=== PATIENT | female | born 1985 | race Caucasian/White ===

== ENCOUNTER 2016-11-27 02:09 | Inpatient (IN) | payer OTHER ==
[2016-11-27] MEDS ORDERED: Ondansetron 4 MG/2 ML SDV IVPUSH PRN ×2 (02:48→07:18)
[2016-11-27] MEDS ORDERED: Lidocaine 1% 50 ML MDV INJECT ONE (02:48)
[2016-11-27] MEDS ORDERED: Nalbuphine 20 MG/1 ML Amp IVPUSH PRN (02:48)
[2016-11-27] MEDS: Lactated Ringers 1,000 ML IV SCH ×3 (03:00→06:05)
[2016-11-27] MEDS ORDERED: Lactated Ringers 1,000 ML IV SCH (05:30)
[2016-11-27] MEDS ORDERED: Gentamicin 400 MG in Sodium Chloride 0.9% 100 ML IV ONE (05:35)
[2016-11-27] MEDS ORDERED: Clindamycin Phosphate 900 MG in Sodium Chloride 0.9% 100 ML IV ONE (05:35)
[2016-11-27] MEDS ORDERED: Gentamicin 40 MG/ML 2 ML Vial ONE (05:48)
[2016-11-27] MEDS ORDERED: Clindamycin Phosphate 900 MG/6 ML AdvVial ONE (05:48)
[2016-11-27] MEDS ORDERED: Sodium Chloride 0.9% 100 ML ONE ×2 (05:50)
[2016-11-27] MEDS ORDERED: Bupivacaine 0.5% 30 ML SDV ONE (05:53)
[2016-11-27] MEDS ORDERED: Citric Acid/Sodium Citrate Solution 30 ML Cup PO ONE (06:00)
[2016-11-27] MEDS ORDERED: Sodium Chloride 0.9% 10 ML Syringe FLUSH PRN (06:00)
[2016-11-27] MEDS ORDERED: Metoclopramide 10 MG/2 ML SDV IVPUSH ONE (06:00)
--- NOTE | 2016-11-27 07:17 | PCM.POSTAN ---
POST ANESTHESIA ASSESSMENT - MENTAL STATUS Mental Status: alert, oriented - VITAL SIGNS Pulse Rate: 94 SaO2: 99 Resp Rate: 16 Blood Pressure: 88/67 Temperature: 36.4 C - RESPIRATORY Respiratory Status: respiratory rate WNL, airway patent, O2 saturation stable - CARDIOVASCULAR CV Status: pulse rate WNL, blood pressure stable - GASTROINTESTINAL GI Status: no symptoms - PAIN Pain Score: 0 - POST OP HYDRATION Hydration Status: adequate & stable
[2016-11-27] MEDS ORDERED: fentaNYL 100 MCG/2 ML SDV IVPUSH PRN (07:18)
[2016-11-27] MEDS ORDERED: Metoclopramide 10 MG/2 ML SDV IVPUSH PRN (07:18)
--- NOTE | 2016-11-27 07:23 | PCM.OPNOTE ---
- General Post-Op/Procedure Note Date of Surgery/Procedure: 11/27/16 Operative Procedure(s): repeat section Findings: viable female, OP, 8/9 APGARS, 7#[id number] at 0642 Pre Op Diagnosis: SROM, prior Post-Op Diagnosis: Same Anesthesia Technique: Spinal Primary Surgeon: Joselyn Kevin Anesthesia Provider: Sharath Dougherty Watermaster: Kaya Shannon Fluid Replacement, Intraop: 2,000 Output, Urine Amount: 175 EBL in mLs: 500 Complications: None Condition: Good Free Text/Narrative:: Intake & Output 11/26/16 11/27/16 11/27/16 22:59 06:59 14:59 Intake Total 3200 Balance 3200 The patient was taken to the operating room where epidural anesthesia was dosed to surgical levels without difficulty. The patient was prepped and draped in the usual sterile fashion in the dorsal supine position with a leftward tilt. A Pfannenstiel skin incision was made with the scalpel and carried through to the underlying layer of fascia. The fascia was incised in the midline and extended laterally using Felix scissors. Karen clamps were used to elevate the superior aspect of the fascial incision, which was elevated, and the underlying rectus muscles were dissected off bluntly and using Felix scissors. Attention was then turned to the inferior aspect of the fascial incision, which in similar fashion was grasped with Karen clamps, elevated, and the underlying rectus muscles were dissected off bluntly and using the felix. The rectus muscles were dissected in the midline. The peritoneum was identified and entered using Metzenbaum scissors; this incision was extended superiorly and inferiorly with good visualization of the bladder. The bladder blade was inserted. The vesicouterine peritoneum was identified and entered sharply using Metzenbaum scissors. This incision was extended laterally and the bladder flap was created digitally. The bladder blade was reinserted. The lower uterine segment was incised in a transverse fashion using the scalpel and extended using bandage scissors as well as manual traction. Clear fluid was noted. The infant was subsequently delivered by flexing the head to the incision. Body and shoulders followed without difficulty. The cord was clamped and cut. The was subsequently handed to the awaiting platform worker whose presence had been requested.. The placenta was delivered spontaneously intact with a three-vessel cord noted. The uterus was exteriorized and cleared of all clots and debris. The uterine incision was repaired in 2 layers using 0 monocryl. Hemostasis was visualized. Hemostasis was visualized bilaterally. The uterus was returned to the abdomen. The uterine incision was reexamined and it was noted to be hemostatic. The pelvis was copiously irrigated. The fascia was closed with 1 PDS suture, and the skin was closed with 3-0 monocryl. Sponge, lap, and instrument counts were correct x2. The patient was stable at the completion of the procedure and was subsequently transferred to the recovery room in stable condition.
[2016-11-27] MEDS ORDERED: Meperidine PF 50 MG/ML Syringe IVPUSH ONE (07:45)
[2016-11-27] MEDS ORDERED: Oxytocin/Lactated Ringers 10 UNIT/1,000 ML BAG IV SCH (08:00)
[2016-11-27] MEDS ORDERED: Ketorolac 30 MG/ML SDV IVPUSH SCH (08:00)
[2016-11-27] MEDS ORDERED: ePHEDrine 50 MG/ML SDV IVPUSH PRN (08:18)
[2016-11-27] MEDS ORDERED: Lanolin 100% Cream 7 GM Tube TOP PRN (08:18)
[2016-11-27] MEDS ORDERED: Dextrose 5%-Lactated Ringers 1,000 ML IV SCH (08:18)
[2016-11-27] MEDS ORDERED: diphenhydrAMINE 50 MG/ML SDV IVPUSH PRN (08:18)
[2016-11-27] MEDS ORDERED: Naloxone 0.4 MG/ML SDV IVPUSH PRN (08:18)
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
[2016-11-27] MEDS: Ketorolac 30 MG/ML SDV IVPUSH SCH ×2 (13:58→18:54)
[2016-11-27] MEDS ORDERED: Dextrose 5%-0.45% NaCl 1,000 ML IV SCH (16:00)
[2016-11-28] MEDS: Ketorolac 30 MG/ML SDV IVPUSH SCH (00:41)
--- NOTE | 2016-11-28 07:06 | PCM.PNPP ---
- General Info Date of Service: 11/28/16 Functional Status: Reports: pain controlled, tolerating diet, ambulating, urinating - Review of Systems General: Reports: no symptoms Pulmonary: Reports: no symptoms Cardiovascular: Reports: no symptoms Gastrointestinal: Reports: No symptoms Genitourinary: Reports: no symptoms - Patient Data Vital Signs - most recent: Last Vital Signs Temp 37.3 C 11/28/16 06:35 Pulse 73 11/28/16 04:19 Resp 18 11/28/16 04:36 BP 107/55 L 11/28/16 04:19 Pulse Ox 97 11/28/16 04:36 Weight - most recent: 79.832 kg I&O - last 24 hours: Intake & Output 11/27/16 11/28/16 11/28/16 22:59 06:59 14:59 Intake Total 180 Output Total 1300 700 Balance -1120 -700 Lab Results - last 24 hrs: Laboratory Results - last 24 hr 11/27/16 Range/Units 09:24 WBC 22.30 H (3.98-10.04) K/mm3 RBC 3.75 L (3.98-5.22) M/mm3 Hgb 11.8 (11.2-15.7) gm/L Hct 34.8 (34.1-44.9) % MCV 92.8 (79.4-94.8) fl MCH 31.5 (25.6-32.2) pg MCHC 33.9 (32.2-35.5) g/dl RDW Std Deviation 48.2 H (36.4-46.3) fL Plt Count 410 H (182-369) K/mm3 MPV 10.6 (9.4-12.3) fl Med Orders - Current: Current Medications Acetaminophen/Hydrocodone Bitart ([place] 325-5 Mg) 2 tab PO Q4H PRN PRN Reason: Pain (moderate 4-6) Diphenhydramine HCl (Benadryl) 25 mg IVPUSH Q6H PRN PRN Reason: Itching or Nausea Docusate Sodium (Colace) 100 mg PO Q12H PRN PRN Reason: Constipation Emollient Ointment (Lansinoh Hpa) 0 gm TOP ASDIRECTED PRN PRN Reason: Sore Nipples Ephedrine Sulfate (Ephedrine Sulfate) 5 mg IVPUSH SEECOMMENT PRN PRN Reason: Other Dextrose/Sodium Chloride (Dextrose 5%-1/2 Ns) 1,000 mls @ 125 mls/hr IV ASDIRECTED [facility] Ibuprofen (Motrin) 600 mg PO Q6H PRN PRN Reason: mild pain or fever Naloxone HCl (Narcan) 0.1 mg IVPUSH SEECOMMENT PRN PRN Reason: Respiratory Depression Discontinued Medications Bupivacaine HCl (Marcaine 0.5%) Confirm Administered Dose 30 ml .ROUTE .STK-MED ONE Stop: 11/27/16 05:54 Last Admin: 11/27/16 06:38 Dose: 20 ml Citric Acid/Sodium Citrate (Bicitra Solution) 30 ml PO ONETIME ONE Stop: 11/27/16 06:01 Last Admin: 11/27/16 06:04 Dose: 30 ml Clindamycin Phosphate (Cleocin) Confirm Administered Dose 900 mg .ROUTE .STK- MED ONE Stop: 11/27/16 05:49 Last Admin: 11/27/16 06:04 Dose: Not Given Fentanyl (Sublimaze) 50 mcg IVPUSH Q5M PRN PRN Reason: pain Stop: 11/27/16 10:00 Gentamicin Sulfate (Gentamicin) Confirm Administered Dose 400 mg .ROUTE .STK- MED ONE Stop: 11/27/16 05:49 Last Admin: 11/27/16 06:04 Dose: Not Given Lactated Ringer's (Ringers, Lactated) 1,000 mls @ 125 mls/hr IV ASDIRECTED [facility] Oxytocin/Lactated Ringer's (Pitocin In Lr 10 Units/1,000 Ml) 10 unit in 1,000 mls @ 100 mls/hr IV ASDIRECTED [facility] PRN Reason: Protocol Lactated Ringer's (Ringers, Lactated) 1,000 mls @ 125 mls/hr IV ASDIRECTED [facility] Last Admin: 11/27/16 06:05 Dose: 125 mls/hr Clindamycin Phosphate 900 mg/ (Sodium Chloride) 106 mls @ 100 mls/hr IV ONETIME ONE Stop: 11/27/16 06:38 Last Admin: 11/27/16 05:50 Dose: 100 mls/hr Gentamicin Sulfate 400 mg/ (Sodium Chloride) 110 mls @ 200 mls/hr IV ONETIME ONE Stop: 11/27/16 06:07 Last Admin: 03/08/17 06:03 Dose: 200 mls/hr Sodium Chloride (Normal Saline) Confirm Administered Dose 100 mls @ as directed .ROUTE .[facility] ONE Stop: 11/27/16 05:51 Last Admin: 11/27/16 06:04 Dose: Not Given Sodium Chloride (Normal Saline) Confirm Administered Dose 100 mls @ as directed .ROUTE .[facility] ONE Stop: 11/27/16 05:51 Last Admin: 11/27/16 06:04 Dose: Not Given Dextrose/Lactated Ringer's (Dextrose 5%-Lactated Ringers) 1,000 mls @ 125 mls/ hr IV ASDIRECTED [facility] Stop: 11/27/16 16:17 Last Admin: 11/27/16 13:58 Dose: 125 mls/hr Ketorolac Tromethamine (Toradol) 30 mg IVPUSH Q6H [facility] Stop: 11/27/16 20:01 Last Admin: 11/27/16 19:30 Dose: Not Given Ketorolac Tromethamine (Toradol) 30 mg IVPUSH Q6H [facility] Stop: 11/28/16 01:01 Last Admin: 11/28/16 00:41 Dose: 30 mg Lidocaine HCl (Xylocaine 1%) 50 ml INJECT ASDIRECTED ONE Stop: 11/27/16 02:49 Last Admin: 11/27/16 06:17 Dose: Not Given Meperidine HCl (Demerol) 12.5 mg IVPUSH ONETIME ONE Stop: 11/27/16 07:46 Last Admin: 11/27/16 07:42 Dose: 12.5 mg Metoclopramide HCl (Reglan) 10 mg IVPUSH ONETIME ONE Stop: 11/27/16 06:01 Last Admin: 11/27/16 06:04 Dose: 10 mg Metoclopramide HCl (Reglan) 10 mg IVPUSH ONETIME PRN PRN Reason: Nausea/Vomiting Stop: 11/27/16 10:00 Nalbuphine HCl (Nubain) 10 mg IVPUSH Q2H PRN PRN Reason: Pain (moderate 4-6) Ondansetron HCl (Zofran) 4 mg IVPUSH Q4H PRN PRN Reason: Nausea/Vomiting Last Admin: 11/27/16 05:18 Dose: 4 mg Ondansetron HCl (Zofran) 4 mg IVPUSH ONETIME PRN PRN Reason: Nausea/Vomiting Stop: 11/27/16 10:00 Sodium Chloride (Saline Flush) 10 ml FLUSH ASDIRECTED PRN PRN Reason: Keep Vein Open - Infant Interaction Disposition, : in Room with Family Infant Interaction: Holding Feeding: Breastfed ; Nursed Well Support Person: - Recovery Exam Fundal Tone: Firm Fundal Level: At Umbilicus Fundal Placement: Midline Lochia Amount: Scant Lochia Color: Rubra/Red Perineum Description: Intact, Minimal Bruising/Swelling Episiotomy/Laceration: Not Approximated Bladder Status: Voiding Urinary Elimination: Indwelling Catheter - Exam General: alert, oriented, cooperative Lungs: Clear to auscultation, Normal respiratory effort Cardiovascular: regular rate, regular rhythm Abdomen: soft, no tenderness Skin: warm, dry, intact Wound/Incisions: dressing dry and intact - Problem List & Annotations (1) S/P repeat low transverse SNOMED Code(s): 394148846, 102679214, 143647979, 599724120 Code(s): Z98.891 - HISTORY OF UTERINE SCAR FROM PREVIOUS SURGERY Status: Acute Current Visit: Yes - Problem List Review Problem List Initiated/Reviewed/Updated: Yes - Assessment Assessment:: POD#1 from RLTCS - Plan Plan:: * Routine cares * Encourage breast feeding * Home in 1-2 days
[2016-11-28] MEDS: Acetaminophen/HYDROcodone 325-5 MG Tab PO PRN ×3 (08:24→18:38)
[2016-11-28] MEDS: Docusate Sodium 100 MG Cap PO PRN (17:11)
[2016-11-28] MEDS: Ibuprofen 600 MG Tab PO PRN (20:49)
[2016-11-29] MEDS: Acetaminophen/HYDROcodone 325-5 MG Tab PO PRN ×2 (04:39→14:06)
--- NOTE | 2016-11-29 06:50 | PCM.PNPP ---
- General Info Date of Service: 11/29/16 Functional Status: Reports: pain controlled, tolerating diet, ambulating, urinating - Review of Systems General: Reports: no symptoms Pulmonary: Reports: no symptoms Cardiovascular: Reports: no symptoms Gastrointestinal: Reports: No symptoms Genitourinary: Reports: no symptoms Musculoskeletal: Reports: no symptoms - Patient Data Vital Signs - most recent: Last Vital Signs Temp 36.7 C 11/29/16 04:34 Pulse 77 11/29/16 04:34 Resp 16 11/29/16 04:34 BP 89/68 L 11/29/16 04:34 Pulse Ox 98 11/29/16 04:34 Weight - most recent: 79.832 kg I&O - last 24 hours: Intake & Output 11/28/16 11/28/16 11/29/16 14:59 22:59 06:59 Intake Total 330 Output Total 700 1000 Balance -370 -1000 Med Orders - Current: Current Medications Acetaminophen/Hydrocodone Bitart ([place] 325-5 Mg) 2 tab PO Q4H PRN PRN Reason: Pain (moderate 4-6) Last Admin: 11/29/16 04:39 Dose: 2 tab Docusate Sodium (Colace) 100 mg PO Q12H PRN PRN Reason: Constipation Last Admin: 11/28/16 17:11 Dose: 100 mg Emollient Ointment (Lansinoh Hpa) 0 gm TOP ASDIRECTED PRN PRN Reason: Sore Nipples Ibuprofen (Motrin) 600 mg PO Q6H PRN PRN Reason: mild pain or fever Last Admin: 11/28/16 20:49 Dose: 600 mg Naloxone HCl (Narcan) 0.1 mg IVPUSH SEECOMMENT PRN PRN Reason: Respiratory Depression Discontinued Medications Bupivacaine HCl (Marcaine 0.5%) Confirm Administered Dose 30 ml .ROUTE .STK-MED ONE Stop: 11/27/16 05:54 Last Admin: 11/27/16 06:38 Dose: 20 ml Citric Acid/Sodium Citrate (Bicitra Solution) 30 ml PO ONETIME ONE Stop: 11/27/16 06:01 Last Admin: 11/27/16 06:04 Dose: 30 ml Clindamycin Phosphate (Cleocin) Confirm Administered Dose 900 mg .ROUTE .STK- MED ONE Stop: 11/27/16 05:49 Last Admin: 11/27/16 06:04 Dose: Not Given Diphenhydramine HCl (Benadryl) 25 mg IVPUSH Q6H PRN PRN Reason: Itching or Nausea Ephedrine Sulfate (Ephedrine Sulfate) 5 mg IVPUSH SEECOMMENT PRN PRN Reason: Other Fentanyl (Sublimaze) 50 mcg IVPUSH Q5M PRN PRN Reason: pain Stop: 11/27/16 10:00 Gentamicin Sulfate (Gentamicin) Confirm Administered Dose 400 mg .ROUTE .STK- MED ONE Stop: 11/27/16 05:49 Last Admin: 11/27/16 06:04 Dose: Not Given Lactated Ringer's (Ringers, Lactated) 1,000 mls @ 125 mls/hr IV ASDIRECTED [facility] Oxytocin/Lactated Ringer's (Pitocin In Lr 10 Units/1,000 Ml) 10 unit in 1,000 mls @ 100 mls/hr IV ASDIRECTED [facility] PRN Reason: Protocol Lactated Ringer's (Ringers, Lactated) 1,000 mls @ 125 mls/hr IV ASDIRECTED [facility] Last Admin: 11/27/16 06:05 Dose: 125 mls/hr Clindamycin Phosphate 900 mg/ (Sodium Chloride) 106 mls @ 100 mls/hr IV ONETIME ONE Stop: 11/27/16 06:38 Last Admin: 11/27/16 05:50 Dose: 100 mls/hr Gentamicin Sulfate 400 mg/ (Sodium Chloride) 110 mls @ 200 mls/hr IV ONETIME ONE Stop: 11/27/16 06:07 Last Admin: 11/27/16 06:03 Dose: 200 mls/hr Sodium Chloride (Normal Saline) Confirm Administered Dose 100 mls @ as directed .ROUTE .STK-MED ONE Stop: 11/27/16 05:51 Last Admin: 11/27/16 06:04 Dose: Not Given Sodium Chloride (Normal Saline) Confirm Administered Dose 100 mls @ as directed .ROUTE .STK-MED ONE Stop: 11/27/16 05:51 Last Admin: 11/27/16 06:04 Dose: Not Given Dextrose/Sodium Chloride (Dextrose 5%-1/2 Ns) 1,000 mls @ 125 mls/hr IV ASDIRECTED [facility] Dextrose/Lactated Ringer's (Dextrose 5%-Lactated Ringers) 1,000 mls @ 125 mls/ hr IV ASDIRECTED [facility] Stop: 11/27/16 16:17 Last Admin: 11/27/16 13:58 Dose: 125 mls/hr Ketorolac Tromethamine (Toradol) 30 mg IVPUSH Q6H [facility] Stop: 11/27/16 20:01 Last Admin: 11/27/16 19:30 Dose: Not Given Ketorolac Tromethamine (Toradol) 30 mg IVPUSH Q6H [facility] Stop: 11/28/16 01:01 Last Admin: 11/28/16 00:41 Dose: 30 mg Lidocaine HCl (Xylocaine 1%) 50 ml INJECT ASDIRECTED ONE Stop: 11/27/16 02:49 Last Admin: 11/27/16 06:17 Dose: Not Given Meperidine HCl (Demerol) 12.5 mg IVPUSH ONETIME ONE Stop: 11/27/16 07:46 Last Admin: 11/27/16 07:42 Dose: 12.5 mg Metoclopramide HCl (Reglan) 10 mg IVPUSH ONETIME ONE Stop: 11/27/16 06:01 Last Admin: 11/27/16 06:04 Dose: 10 mg Metoclopramide HCl (Reglan) 10 mg IVPUSH ONETIME PRN PRN Reason: Nausea/Vomiting Stop: 11/27/16 10:00 Nalbuphine HCl (Nubain) 10 mg IVPUSH Q2H PRN PRN Reason: Pain (moderate 4-6) Ondansetron HCl (Zofran) 4 mg IVPUSH Q4H PRN PRN Reason: Nausea/Vomiting Last Admin: 11/27/16 05:18 Dose: 4 mg Ondansetron HCl (Zofran) 4 mg IVPUSH ONETIME PRN PRN Reason: Nausea/Vomiting Stop: 11/27/16 10:00 Sodium Chloride (Saline Flush) 10 ml FLUSH ASDIRECTED PRN PRN Reason: Keep Vein Open - Interaction Disposition, : [place] in Room with Family Infant Interaction: Holding Feeding: Breastfed Infant; Nursed Well Support Person: - Recovery Exam Fundal Tone: Firm Fundal Level: At Umbilicus Fundal Placement: Midline Lochia Amount: Scant Lochia Color: Rubra/Red Perineum Description: Intact, Minimal Bruising/Swelling Episiotomy/Laceration: None Bladder Status: Voiding Urinary Elimination: Voided - Exam General: alert, oriented, cooperative Lungs: Clear to auscultation, Normal respiratory effort Cardiovascular: regular rhythm, tachycardia Abdomen: soft, no tenderness Extremities: no edema Skin: warm, dry, intact Wound/Incisions: healing well, no drainage - Problem List & Annotations (1) S/P repeat low transverse SNOMED Code(s): 981745492, 118687069, 435774698, 759084395 Code(s): Z98.891 - HISTORY OF UTERINE SCAR FROM PREVIOUS SURGERY Status: Acute Current Visit: Yes - Problem List Review Problem List Initiated/Reviewed/Updated: Yes - My Orders Last 24 Hours: My Active Orders 11/29/16 06:44 CBC W/O DIFF,HEMOGRAM [HEME] Routine - Assessment Assessment:: POD#2 from RLTCS - Plan Plan:: * Routine cares * Encourage breast feeding * Home today
--- NOTE | 2016-11-29 07:29 | PCM.DCSUM1 ---
Discharge Summary - Discharge Data Discharge Date: 11/29/16 Discharge Disposition: Home, Self-Care 01 Condition: Good - Discharge Diagnosis/Problem(s) (1) S/P repeat low transverse SNOMED Code(s): 373149193, [id number], [id number], [id number] ICD Code: Z98.891 - HISTORY OF UTERINE SCAR FROM PREVIOUS SURGERY Status: Acute Current Visit: Yes - Patient Summary/Data Operative Procedure(s) Performed: repeat section Complications: None Consults: None Recommended Follow-up Testing/Procedures: Follow up in 1-2 weeks for incision check Hospital Course: 31 y/o admitted at 40 4/7 wks for SROM. She initially desired a trial of labor, but was closed and after minimal change desired to proceed with RLTCS. See operative note. Procedure was uncomplicated. She did well and was discharged home on POD#2. - Patient Instructions Diet: Regular Diet as Tolerated Activity: No Lifting Over 10 Pounds Activity, Other: Pelvic Rest for 6 weeks Driving: Do Not Drive (While taking narcotics ) Showering/Bathing: May Shower, No Tub Bathing/Swimming Wound/Incision Care: Keep Operative Site/Wound Site Clean and Dry Notify Provider of: Fever, Increased Pain, Swelling and Redness, Drainage, Nausea and/or Vomiting - Discharge Plan Prescriptions/Med Rec: Acetaminophen/HYDROcodone [Erie 325-5 MG] 2 tab PO Q4H PRN #30 tablet PRN Reason: Pain Home Medications: Home Meds [id number]/Ferrous Fumarate/FA [ Tablet] 1 tab PO DAILY 11/27/16 [History] Acetaminophen/HYDROcodone [Erie 325-5 MG] 2 tab PO Q4H PRN #30 tablet 11/29/16 [Rx] Docusate Sodium [Colace] 100 mg PO Q12H PRN #0 cap 11/29/16 [Rx] Ibuprofen [IJD: Ibuprofen] 600 mg PO Q6H PRN #0 tablet 11/29/16 [Rx] Referrals: Joselyn Kevin MD [Primary Care Provider] - (1-2 weeks for post op check ) - Discharge Summary/Plan Comment DC Time >30 min.: No - Patient Data Vitals - Most Recent: Last Vital Signs Temp 36.7 C 11/29/16 04:34 Pulse 77 03/10/17 04:34 Resp 16 11/29/16 04:34 BP 89/68 L 11/29/16 04:34 Pulse Ox 98 11/29/16 04:34 Weight - Most Recent: 79.832 kg I&O - Last 24 hours: Intake & Output 11/28/16 11/29/16 11/29/16 22:59 06:59 14:59 Output Total 1000 Balance -1000 Med Orders - Current: Current Medications Acetaminophen/Hydrocodone Bitart (Erie 325-5 Mg) 2 tab PO Q4H PRN PRN Reason: Pain (moderate 4-6) Last Admin: 11/29/16 04:39 Dose: 2 tab Docusate Sodium (Colace) 100 mg PO Q12H PRN PRN Reason: Constipation Last Admin: 11/28/16 17:11 Dose: 100 mg Emollient Ointment (Lansinoh Hpa) 0 gm TOP ASDIRECTED PRN PRN Reason: Sore Nipples Ibuprofen (Motrin) 600 mg PO Q6H PRN PRN Reason: mild pain or fever Last Admin: 11/28/16 20:49 Dose: 600 mg Naloxone HCl (Narcan) 0.1 mg IVPUSH SEECOMMENT PRN PRN Reason: Respiratory Depression Discontinued Medications Bupivacaine HCl (Marcaine 0.5%) Confirm Administered Dose 30 ml .ROUTE .STK-MED ONE Stop: 11/27/16 05:54 Last Admin: 11/27/16 06:38 Dose: 20 ml Citric Acid/Sodium Citrate (Bicitra Solution) 30 ml PO ONETIME ONE Stop: 11/27/16 06:01 Last Admin: 11/27/16 06:04 Dose: 30 ml Clindamycin Phosphate (Cleocin) Confirm Administered Dose 900 mg .ROUTE .STK- MED ONE Stop: 11/27/16 05:49 Last Admin: 11/27/16 06:04 Dose: Not Given Diphenhydramine HCl (Benadryl) 25 mg IVPUSH Q6H PRN PRN Reason: Itching or Nausea Ephedrine Sulfate (Ephedrine Sulfate) 5 mg IVPUSH SEECOMMENT PRN PRN Reason: Other Fentanyl (Sublimaze) 50 mcg IVPUSH Q5M PRN PRN Reason: pain Stop: 11/27/16 10:00 Gentamicin Sulfate (Gentamicin) Confirm Administered Dose [address] .[address] .[facility] ONE Stop: 11/27/16 05:49 Last Admin: 11/27/16 06:04 Dose: Not Given Lactated Ringer's (Ringers, Lactated) 1,000 mls @ 125 mls/hr IV ASDIRECTED [facility] Oxytocin/Lactated Ringer's (Pitocin In Lr 10 Units/1,000 Ml) 10 unit in 1,000 mls @ 100 mls/hr IV ASDIRECTED [facility] PRN Reason: Protocol Lactated Ringer's (Ringers, Lactated) 1,000 mls @ 125 mls/hr IV ASDIRECTED [facility] Last Admin: 11/27/16 06:05 Dose: 125 mls/hr Clindamycin Phosphate 900 mg/ (Sodium Chloride) 106 mls @ 100 mls/hr IV ONETIME ONE Stop: 11/27/16 06:38 Last Admin: 11/27/16 05:50 Dose: 100 mls/hr Gentamicin Sulfate 400 mg/ (Sodium Chloride) 110 mls @ 200 mls/hr IV ONETIME ONE Stop: 11/27/16 06:07 Last Admin: 11/27/16 06:03 Dose: 200 mls/hr Sodium Chloride (Normal Saline) Confirm Administered Dose 100 mls @ as directed .ROUTE .[facility] ONE Stop: 11/27/16 05:51 Last Admin: 11/27/16 06:04 Dose: Not Given Sodium Chloride (Normal Saline) Confirm Administered Dose 100 mls @ as directed .ROUTE .[facility] ONE Stop: 11/27/16 05:51 Last Admin: 11/27/16 06:04 Dose: Not Given Dextrose/Sodium Chloride (Dextrose 5%-1/2 Ns) 1,000 mls @ 125 mls/hr IV ASDIRECTED [facility] Dextrose/Lactated Ringer's (Dextrose 5%-Lactated Ringers) 1,000 mls @ 125 mls/ hr IV ASDIRECTED [facility] Stop: 11/27/16 16:17 Last Admin: 11/27/16 13:58 Dose: 125 mls/hr Ketorolac Tromethamine (Toradol) 30 mg IVPUSH Q6H [facility] Stop: 11/27/16 20:01 Last Admin: 11/27/16 19:30 Dose: Not Given Ketorolac Tromethamine (Toradol) 30 mg IVPUSH Q6H [facility] Stop: 11/28/16 01:01 Last Admin: 11/28/16 00:41 Dose: 30 mg Lidocaine HCl (Xylocaine 1%) 50 ml INJECT ASDIRECTED ONE Stop: 11/27/16 02:49 Last Admin: 11/27/16 06:17 Dose: Not Given Meperidine HCl (Demerol) 12.5 mg IVPUSH ONETIME ONE Stop: 11/27/16 07:46 Last Admin: 11/27/16 07:42 Dose: 12.5 mg Metoclopramide HCl (Reglan) 10 mg IVPUSH ONETIME ONE Stop: 11/27/16 06:01 Last Admin: 11/27/16 06:04 Dose: 10 mg Metoclopramide HCl (Reglan) 10 mg IVPUSH ONETIME PRN PRN Reason: Nausea/Vomiting Stop: 11/27/16 10:00 Nalbuphine HCl (Nubain) 10 mg IVPUSH Q2H PRN PRN Reason: Pain (moderate 4-6) Ondansetron HCl (Zofran) 4 mg IVPUSH Q4H PRN PRN Reason: Nausea/Vomiting Last Admin: 11/27/16 05:18 Dose: 4 mg Ondansetron HCl (Zofran) 4 mg IVPUSH ONETIME PRN PRN Reason: Nausea/Vomiting Stop: 11/27/16 10:00 Sodium Chloride (Saline Flush) 10 ml FLUSH ASDIRECTED PRN PRN Reason: Keep Vein Open *Q Meaningful Use (DIS) - VTE *Q VTE Criteria *Q: - Stroke *Q Stroke Criteria *Q: - AMI *Q AMI Criteria *Q:
[2016-11-29] MEDS: Docusate Sodium 100 MG Cap PO PRN (08:41)
[2016-11-29] MEDS: Ibuprofen 600 MG Tab PO PRN (08:41)
[2016-11-29 09:27] VITALS: BP 89/73
== END 2016-11-29 14:25 | disposition home or self-care (01) | DRG 766 ==
LOC: JD.OB 02:09 → INTOOBSV 02:09 → OBSVTOIN 06:42 → JD.OB 06:42
PROVIDERS: ADMIT Obstetrics & Gynecology; ATTEND Obstetrics & Gynecology
PROC: 10D00Z1 Extraction of Products of Conception, Low, Open Approach (ICD-10-PCS; principal; 2016-11-27)
DX: O34.211 Maternal care for low transverse scar from previous cesarean delivery (principal); N85.8 Other specified noninflammatory disorders of uterus; O42.92 Full-term premature rupture of membranes, unspecified as to length of time between rupture and onset of labor; Z3A.41 41 weeks gestation of pregnancy; Z37.0 Single live birth; Z88.0 Allergy status to penicillin; Z88.2 Allergy status to sulfonamides
CPT/HCPCS: 01961; 36415; 85025; 85027; 86850; 86900; 86901; A9270-GY; J1580; J1885; J2175; J2405; J2765; J7030; J7042; J7120